=== PATIENT | male | born 1945 | race Two or more races ===

== ENCOUNTER 2018-06-06 10:27 | Emergency (ER) | payer MEDICARE, MEDICAID ==
[~2018-06-06] VITALS: Ht 170.2 cm; Wt 54.4 kg
[~2018-06-06 10:27] MED LIST: ACET-907 PO; ASPI-1169 PO; ATOR40TA PO; CHOL100044 PO; CITA10TA9 PO; DIVA125C5 PO; METF500T7 PO; TRAZ-182 PO
[2018-06-06] MEDS ORDERED: HALOPERIDOL LACTATE INJ 5 MG/ML VIAL ONE (10:53)
[2018-06-06] MEDS ORDERED: LORAZEPAM INJ 2 MG/ML VIAL ONE ×2 (10:53→11:53)
[2018-06-06] MEDS ORDERED: LORAZEPAM INJ 2 MG/ML VIAL IM ONE ×2 (11:00→12:00)
[2018-06-06] MEDS ORDERED: HALOPERIDOL LACTATE INJ 5 MG/ML VIAL IM ONE (11:00)
[2018-06-06] MEDS ORDERED: LORAZEPAM INJ 2 MG/ML VIAL IV ONE (11:00)
[2018-06-06 11:21] LABS: BASOPHILS # (AUTO) 0.1 /CMM (0.0-0.2); BASOPHILS % (AUTO) 0.9 % (0.0-2.0); HEMATOCRIT 36 % (39-51); HEMOGLOBIN 11.8 g/dL (13.5-17.5); LYMPHOCYTES # (AUTO) 3.4 /CMM (0.8-4.8); LYMPHOCYTES % (AUTO) 30.4 % (20.0-44.0); MEAN CORPUSCULAR HGB CONC 33 g/dl (31.0-36.0); MEAN CORPUSCULAR VOLUME 93 fL (80-96); MONOCYTES # (AUTO) 0.7 /CMM (0.1-1.30); MONOCYTES % (AUTO) 6.4 % (2.0-12.0); NEUTROPHILS % (AUTO) 61.3 % (43.0-81.0); PLATELET COUNT (AUTO) 171 /CMM (150-450); RDW COEFFICIENT OF VARIATION 14.7 (11.5-15.0); RED BLOOD CELL COUNT(AUTO) 3.81 MIL/uL (4.5-6.0); WHITE BLOOD COUNT (AUTO) 11.3 K/uL (4.3-11.0)
[2018-06-06 11:31] LABS: CALCIUM, SERUM 8.4 mg/dL (8.5-10.1); CARBON DIOXIDE 30 mmol/L (21-32); CHLORIDE 106 mmol/L (98-107); CREATININE 0.6 mg/dL (0.6-1.3); GLUCOSE 247 mg/dL (74-106); POTASSIUM 3.7 mmol/L (3.5-5.1); SODIUM SERUM 143 mmol/L (136-145); UREA NITROGEN, BLOOD 14 mg/dL (7-18)
[2018-06-06 11:41] LABS: TROPONIN I < 0.017 ng/mL (0.00-0.056)
[2018-06-06] MEDS ORDERED: TDAP [DIPH/PERTUSSIS/TET] 0.5 ML VIAL IM ONE ×2 (13:00→13:18)
[2018-06-06 19:09] VITALS: BP 134/48
== END 2018-06-06 19:10 | disposition home or self-care (01) ==
LOC: ER 10:31
DX: S01.312A Laceration without foreign body of left ear, initial encounter (principal); F32.9 Major depressive disorder, single episode, unspecified; F03.90 Unspecified dementia, unspecified severity, without behavioral disturbance, psychotic disturbance, mood disturbance, and anxiety; E11.9 Type 2 diabetes mellitus without complications; Z86.73 Personal history of transient ischemic attack (TIA), and cerebral infarction without residual deficits; Z79.82 Long term (current) use of aspirin; Z79.899 Other long term (current) drug therapy; X58.XXXA Exposure to other specified factors, initial encounter; Y93.89 Activity, other specified; Y92.89 Other specified places as the place of occurrence of the external cause; Y99.8 Other external cause status
CPT/HCPCS: 36415; 70450-TC; 71045-TC; 80048-TC; 84484-TC; 85025-TC; 90715; A4606; A6402; A6403; J1630; J2060; Z7610

== ENCOUNTER 2019-09-19 10:45 | Emergency (ER) | payer MEDICARE, OTHER ==
[~2019-09-19] VITALS: Ht 167.6 cm; Wt 73.0 kg
[~2019-09-19 10:45] MED LIST changes: +METF500T20 PO; -METF500T7 PO
[2019-09-19] MEDS ORDERED: ASPI-1152 PO (11:01)
[2019-09-19] MEDS ORDERED: TRIA15OI2 TP (11:01)
--- NOTE | 2019-09-19 11:04 | NUR ---
BIB [facility] assisted living c/o frequent falling from wheelchair, pt awake, alert, -sob, nad noted, pending md spring
[2019-09-19] MEDS: IV NS 0.9% 1,000 ML BAG IV ONE (11:14)
[2019-09-19 11:15] LABS: MEAN CORPUSCULAR HGB CONC 34 g/dl (31.0-36.0); MEAN CORPUSCULAR VOLUME 94 fL (80-96); PLATELET COUNT (AUTO) 141 /CMM (150-450)
[2019-09-19 11:20] LABS: BASOPHILS # (AUTO) 0.1 /CMM (0.0-0.2); BASOPHILS % (AUTO) 0.6 % (0.0-2.0); EOSINOPHILS % (AUTO) 0.2 % (0.0-6.0); HEMATOCRIT 35 % (39-51); HEMOGLOBIN 11.7 g/dL (13.5-17.5); LYMPHOCYTES # (AUTO) 1.7 /CMM (0.8-4.8); LYMPHOCYTES % (AUTO) 17.8 % (20.0-44.0); MONOCYTES # (AUTO) 0.9 /CMM (0.1-1.30); MONOCYTES % (AUTO) 10.1 % (2.0-12.0); NEUTROPHILS # (AUTO) 6.6 /CMM (1.8-8.9); NEUTROPHILS % (AUTO) 71.3 % (43.0-81.0); WHITE BLOOD COUNT (AUTO) 9.3 K/uL (4.3-11.0)
[2019-09-19 11:23] LABS: CALCIUM, SERUM 9.2 mg/dL (8.5-10.1); CARBON DIOXIDE 31 mmol/L (21-32); CHLORIDE 101 mmol/L (98-107); CREATININE 0.8 mg/dL (0.6-1.3); GLUCOSE 110 mg/dL (74-106); POTASSIUM 3.6 mmol/L (3.5-5.1); SODIUM SERUM 138 mmol/L (136-145); UREA NITROGEN, BLOOD 16 mg/dL (7-18)
[2019-09-19 11:29] LABS: ALANINE AMINOTRANSFERASE 40 U/L (12-78); ALBUMIN 3.6 g/dL (3.4-5.0); ALKALINE PHOSPHATASE 84 U/L (46-116); ASPARTATE AMINOTRANSFERASE 42 U/L (15-37); BILIRUBIN,DIRECT 0.1 mg/dL (0.0-0.2); BILIRUBIN,TOTAL 0.3 mg/dL (0.2-1.0); TOTAL PROTEIN, SERUM 7.7 g/dL (6.4-8.2)
[2019-09-19 11:57] LABS: APPEARANCE,URINE Cloudy (CLEAR); BILIRUBIN,URINE Negative (NEGATIVE); BLOOD, URINE Large Ery/uL (NEGATIVE); COLOR,URINE Yellow (YELLOW); KETONES,URINE Negative (NEGATIVE); LEUKOCYTE ESTERASE ,URINE Negative (NEGATIVE); NITRITE, URINE Positive (NEGATIVE); PROTEIN,URINE 30 mg/dl (NEGATIVE); UGLUCOSE Negative (NEGATIVE)
[2019-09-19 12:13] LABS: BACTERIA,URINE Few /HPF (None Seen); SQUAMOUS EPITHELIAL CELL,UR Rare /HPF (None Seen)
--- NOTE | 2019-09-19 14:20 | NUR ---
per dr mann, pt will be be d/c back to facility, family aware
--- NOTE | 2019-09-19 14:30 | NUR ---
[facility] [employer] [employer] ///// ISELA FARR IS [address] TRIP NUMBER [id number]
[2019-09-19 15:36] VITALS: BP 128/72
--- NOTE | 2019-09-19 16:49 | NUR ---
report given to [facility] staff at [facility]
== END 2019-09-19 17:28 | disposition home or self-care (01) ==
LOC: ER 10:50
DX: N39.0 Urinary tract infection, site not specified (principal); R53.1 Weakness; D64.9 Anemia, unspecified; E78.5 Hyperlipidemia, unspecified; E11.9 Type 2 diabetes mellitus without complications; R41.0 Disorientation, unspecified; F03.90 Unspecified dementia, unspecified severity, without behavioral disturbance, psychotic disturbance, mood disturbance, and anxiety; F32.9 Major depressive disorder, single episode, unspecified; Z86.73 Personal history of transient ischemic attack (TIA), and cerebral infarction without residual deficits; Z79.82 Long term (current) use of aspirin; Z79.899 Other long term (current) drug therapy; Z79.84 Long term (current) use of oral hypoglycemic drugs
CPT/HCPCS: 36415; 70450; 71045; 80048; 80076; 81001; 84484; 85025; 85730; 87077; 87086; 87186; 96360; 99284; J7030; 81000-TC